=== PATIENT | male | born 1995 | race Caucasian/White ===

== ENCOUNTER 2017-05-26 11:26 | Day surgery (SDC) | payer OTHER, SELFPAY ==
[2017-05-25 16:18] VITALS: BMI 22.6
--- NOTE | 2017-05-25 22:58 | HP ---
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 He developed swelling and bruising the following morning. He has had persistent problems and sensation of instability, but he has impr scotty from the standpoint of the ability to ambulate. He has been using crutches and a knee immobili zer. He has had no previous knee problems. PAST MEDICAL HISTORY: The patient is otherwise in good health. MEDICATIONS: Takes no routine medications. ALLERGIES: He has no known allergies. FAMILY HISTORY: Otherwise unremarkable. SOCIAL HISTORY: Otherwise unremarkable. REVIEW OF SYSTEMS: Otherwise unremarkable. PHYSICAL EXAMINATION: GENERAL: Reveals a healthy athletic male. HEENT: Unremarkable. NECK: Supple. CHEST: Clear. HEART: Regular rate and rhythm. ABDOMEN: Soft, nontender. RECTAL/GENITAL: Deferred. EXTREMITIES: Pertinent findings of the right knee. There is a trace effusion. There is no deformi ty. There is full range of motion. He has a positive Matthieu's, positive anterior drawer, and 1+ p ositive pivot shift. There is trace valgus laxity at 30 degrees of flexion. NEUROVASCULAR: Intact. There are palpable distal pulses. LABORATORY AND X-RAY FINDINGS: X-rays of the right knee are normal. MRI scan reveals an ACL tear, bone contusions, tear of the posterior horn of the lateral meniscus and a questionable peripheral te ar of the medial meniscus. IMPRESSION: Internal derangement of right knee with anterior cruciate ligament tear, possible media l and/or lateral meniscal tears. PLAN: Arthroscopic assisted ACL reconstruction right knee with patellar tendon graft and/or menisce ctomy and/or debridement and shaving. The nature of the surgery, length of recovery, and potential complications such as infection, loss of motion, incomplete relief, neurovascular injury, continued instability, rupture of the graft, fracture of the patella, thromboembolic phenomena, post-traumatic degenerative arthritis, and need for additional treatment or repeat surgery have been discussed in detail.
[2017-05-26] MEDS ORDERED: Midazolam HCl 2 mg/2 ml Vial ONE (12:52)
[2017-05-26] MEDS ORDERED: Fentanyl 100 MCG/2 ML VIAL ONE ×2 (12:52→14:26)
[2017-05-26] MEDS ORDERED: Lidocaine 2% PF 10 ML AMP (For Epidural Use) ONE (14:15)
[2017-05-26] MEDS ORDERED: Ketorolac Tromethamine 30 MG/ML VIAL ONE (14:15)
[2017-05-26] MEDS ORDERED: Ondansetron HCl/PF 4 MG/2 ML Vial ONE (14:15)
[2017-05-26] MEDS ORDERED: Propofol 200 MG/20 ML VIAL ONE ×2 (14:15)
[2017-05-26] MEDS ORDERED: Dexamethasone 20 MG/5 ML VIAL ONE (14:15)
[2017-05-26] MEDS ORDERED: Midazolam HCl 5 mg/5 ml Vial ONE (14:29)
[2017-05-26] MEDS ORDERED: Lidocaine 1% w/Epinephrine 1:200K 30 ML VIAL ONE (15:51)
[2017-05-26] MEDS ORDERED: HYDROcodone/Acetaminophen 10/325 mg Tablet ONE (18:19)
--- NOTE | 2017-05-26 19:08 | RAD ---
LEFT KNEE TWO VIEWS: HISTORY: 22-year-old male status post recent ACL repair. Recent postop ACL repair changes are noted. No fracture or dislocation. No other unexpected finding. IMPRESSION: Unremarkable recent postop ACL changes. POS: KIM
--- NOTE | 2017-05-26 23:31 | OP ---
DATE OF PROCEDURE: 05/26/2017 SURGEON: Edwar Gusman M.D. RETURNED GOODS INSPECTOR: SESAR Wheatley. ANESTHESIA: General plus femoral nerve block. PREOPERATIVE DIAGNOSIS: Anterior cruciate ligament tear and lateral meniscal tear, right knee. POSTOPERATIVE DIAGNOSIS: Anterior cruciate ligament tear and lateral meniscal tear, right knee. PROCEDURES: 1. Arthroscopic assisted ACL reconstruction, right knee, with patellar tendon graft. 2. Partial arthroscopic lateral meniscectomy. OPERATIVE FINDINGS: Examination under anesthesia revealed a positive Matthieu's, positive pivot shif t. At arthroscopy, the patellofemoral joint was normal. Medial meniscus was normal and stable. Th ere was complete tear of the anterior cruciate ligament at its midsubstance. There was a relatively small flap tear of the posterior horn of the lateral meniscus at the meniscal root. The bulk of th e meniscus was intact. NARRATIVE REPORT: After satisfactory anesthesia was induced in supine position, the patient was prabhjot odin in a leg summers and prepped and draped in the routine manner. Right leg was elevated, exsanguin ated with an Esmarch bandage, and the tourniquet inflated to 300 mmHg. Longitudinal incision was ma de from the inferior pole of patella to tibial tubercle, carried down to subcutaneous tissues, and b leeding points controlled with Bovie cautery. Using sharp and blunt dissection, the patellar tendon was exposed and then a central third bone patellar tendon bone graft was harvested with sharp disse ction and oscillating saw with bone plugs of 25 mm on each end. One of the bone plugs used for the femur was 9 mm in diameter and the other was 11 mm. The graft was sized, repaired on the back table while I arthroscoped the knee which was performed through the same incision used to obtain the soriano llar tendon graft. The [employer] arthroscope was introduced into the anterolateral portal, probed thr ough an anteromedial portal, the inflow and outflow accomplished through the scope using the [employer] arthroscopy pump. Arthroscopy was carried out and the above findings were noted. All findings wer e documented with the video printer and hard copies were made. The stump of the anterior cruciate l igament was debrided with a motorized shaver. The flap tear of the lateral meniscus was debrided wi th the use of basket forceps and motorized shaver and the remaining rim contoured and probed and fou nd to be stable. Notchplasty of the lateral femoral condyle was accomplished with a motorized yvonne to [id number] position. Using the [id number] guide, a guide pin for the femoral tunnel was dril led through the anteromedial portal, and drilled out through the anterolateral aspect of the thigh. It was then over reamed with a 9 mm cannulated reamer. The guidepin was removed. Using the approp riate guide, a guidepin for the tibial tunnel was placed and overdrilled with 11 mm cannulated reame r. There appeared to be good placement of both tunnels. The guidepin for the femoral tunnel was th en reinserted to the anteromedial portal into the femoral tunnel in the anterolateral aspect of the thigh and a passing suture was placed through this to the proximal end of the guide pin to access th e passing suture. This was pulled back into the knee joint and then grasped and pulled out through the tibial tunnel and this was used to pull the graft into the knee joint. Graft was then pulled in to the knee joint and one bone plug pulled into the femoral tunnel and the other into the tibial lindsay oliver. While holding the graft taut, the femoral bone plug was fixed with interference screw placed o jamie a guidepin. The knee was brought in full extension and the tibial bone plug fixed with an inter ference screw placed over a guidepin. Following this, there was elimination Matthieu's and pivot jackeline ft. The knee was rescoped, there was good placement of the graft and there was full range of motion without impingement. The knee was copiously irrigated through the scope and all instruments were w ithdrawn. A 30 mL of 1% lidocaine with epinephrine was instilled into the knee joint. The tibial h arvest site was filled with a small piece of Gelfoam. The patellar harvest site was filled with sma ll portions of bone graft obtained from sizing the graft. The patellar tendon defect was closed wit h interrupted #1 Vicryl, subcutaneous tissues were closed with interrupted #1 and 2-0 Vicryl. Skin was closed with a staple gun. Sterile bulky compressive dressing was applied and the tourniquet def lated after 93 minutes. A [employer] unit was placed. The patient was immobilized in a hinged knee immobilizer. He was awakened and taken to recovery room in stable condition. There were no apparen t intraoperative complications. ESTIMATED BLOOD LOSS: Negligible. The patient will be discharged home in satisfactory condition. He was instructed on ice, elevation and home exercise program by the Physical Therapy Department. He was given written wound care instr uctions and a prescription for Millis 10 for pain, 90 tablets. He will be rechecked in my office in 10-14 days or sooner if there are any problems prior to that time.
== END 2017-05-26 18:40 | disposition home or self-care (01) ==
LOC: SDC 11:26
PROVIDERS: ATTEND Orthopaedic Surgery
PROC: 0SBC4ZZ Excision of Right Knee Joint, Percutaneous Endoscopic Approach (ICD-10-PCS; principal; 2017-05-26)
DX: S83.511A Sprain of anterior cruciate ligament of right knee, initial encounter (principal); S83.281A Other tear of lateral meniscus, current injury, right knee, initial encounter
CPT/HCPCS: C1713; G8978-GP-CI; G8979-GP-CI; G8980-GP-CI; J1100; J1885; J2001; J2250; J2405; J2704; J3010